=== PATIENT | female | born 2000 | race Caucasian/White ===

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

== ENCOUNTER → 2022-02-22 | Outpatient (CLI) | payer OTHER ==
[2022-02-24 02:09] LABS: CHLAMYDIA TRACHOMATIS, NAA Negative (Negative)
== END | disposition home or self-care (01) ==
LOC: LAB SHORT 15:14 → LAB 15:14
PROVIDERS: Advanced Practice Midwife
DX: Z11.3 Encounter for screening for infections with a predominantly sexual mode of transmission (principal)
CPT/HCPCS: 87491; 87591

== ENCOUNTER 2022-07-07 07:55 | Emergency (ER) | payer OTHER ==
[~2022-07-07] VITALS: Ht 152.4 cm; Wt 76.2 kg
[2022-07-07] MEDS ORDERED: CEFU250T47 PO (08:59)
[2022-07-07] MEDS ORDERED: ONDA4ODT MM (09:00)
== END 2022-07-07 09:01 | disposition home or self-care (01) ==
LOC: ER 07:55
DX: J02.0 Streptococcal pharyngitis (principal); Z88.0 Allergy status to penicillin
CPT/HCPCS: 99282

== ENCOUNTER → 2022-07-12 | Outpatient (CLI) | payer OTHER ==
[~2022-07-12] MED LIST changes: +CEFU250T47 PO
[2022-07-12 16:34] LABS: BASOPHILS ABSOLUTE AUTO 0.05 K/mm3 (0.00-0.23); BASOPHILS PERCENT AUTO 1 % (0-2); EOSINOPHILS ABSOLUTE AUTO 0.05 K/mm3 (0.00-0.68); EOSINOPHILS PERCENT AUTO 1 % (0-6); Hematocrit 44.8 % (33.0-51.0); Hemoglobin 15.4 g/dL (11.5-16.0); IMMATURE GRAN ABSOLUTE AUTO 0.04 K/mm3 (0.00-0.10); IMMATURE GRAN PERCENT AUTO 0 % (0-1); LYMPHOCYTES ABSOLUTE AUTO 2.69 K/mm3 (0.84-5.20); LYMPHOCYTES PERCENT AUTO 26 % (21-46); MONOCYTES ABSOLUTE AUTO 0.74 K/mm3 (0.16-1.47); MONOCYTES PERCENT AUTO 7 % (4-13); Mean Corpuscular HGB 31.2 pg (26.0-34.0); Mean Corpuscular HGB Conc 34.4 g/dL (31.5-36.5); Mean Corpuscular Volume 91 fL (80-100); NEUTROPHILS ABSOLUTE AUTO 6.79 K/mm3 (1.96-9.15); NEUTROPHILS PERCENT AUTO 66 % (41-73); Platelet Count 301 K/mm3 (150-400); RDW Coefficient Variation 11.6 % (11.7-14.2); RDW Standard Deviation 38.2 fL (35.1-46.3); Red Blood Cell Count 4.94 M/mm3 (3.80-5.20); White Blood Cell Count 10.36 K/mm3 (4.00-11.30)
[2022-07-12 17:25] LABS: Albumin, Blood 3.6 g/dL (3.4-5.0); Albumin/Globulin Ratio 0.7 (0.8-1.8); Bilirubin, Total 0.2 mg/dL (0.1-1.0); Bun/Creatinine Ratio 13.1 (12.0-20.0); Calcium, Blood 9.8 mg/dL (8.5-10.1); Creatinine, Blood 0.61 mg/dL (0.40-1.00); Globulin, Blood 5.1 g/dL (2.2-4.0); Potassium, Blood 3.7 mmol/L (3.5-5.5); Total Protein, Blood 8.7 g/dL (6.4-8.2)
== END | disposition home or self-care (01) ==
LOC: LAB 16:28 → LAB SHORT 16:28
PROVIDERS: Chiropractor
DX: R10.11 Right upper quadrant pain (principal)
CPT/HCPCS: 80053; 83690; 85025

== ENCOUNTER 2023-03-08 20:22 | Emergency (ER) | payer OTHER ==
[~2023-03-08] VITALS: Ht 152.4 cm; Wt 72.6 kg
[2023-03-08 20:47] VITALS: BP 117/62
== END 2023-03-08 21:37 | disposition home or self-care (01) ==
LOC: ER 20:22
DX: J02.9 Acute pharyngitis, unspecified (principal); Z88.0 Allergy status to penicillin; Z79.899 Other long term (current) drug therapy
CPT/HCPCS: 96372; 99283-25; J1100; J1885

== ENCOUNTER 2023-09-20 16:42 | Emergency (ER) | payer SELFPAY ==
[~2023-09-20] VITALS: Ht 152.4 cm; Wt 63.5 kg
[2023-09-20 16:51] VITALS: BP 130/74
[2023-09-20] MEDS ORDERED: Vistaril25 MG PO (17:40)
[2023-09-20] MEDS ORDERED: HyDROXyzine HCl 25 MG Tab PO ONE (17:40)
[2023-09-20] MEDS ORDERED: Ondansetron 4 MG SoluTab SL ONE (17:40)
== END 2023-09-20 17:55 | disposition home or self-care (01) ==
LOC: ER 16:42
DX: F41.9 Anxiety disorder, unspecified (principal); Z88.0 Allergy status to penicillin
CPT/HCPCS: 99282; A9270

== ENCOUNTER 2023-09-22 10:08 | Emergency (ER) | payer SELFPAY ==
[~2023-09-22] VITALS: Ht 152.4 cm; Wt 65.8 kg
[~2023-09-22 10:08] MED LIST changes: +Vistaril25 MG PO
[2023-09-22] MEDS ORDERED: Mag Hydrox/AL Hydrox/Simeth 30 ML UDC PO ONE (10:40)
[2023-09-22] MEDS ORDERED: Famotidine 20 MG Tab PO ONE (10:40)
[2023-09-22 12:15] VITALS: BP 132/74
== END 2023-09-22 12:15 | disposition home or self-care (01) ==
LOC: ER 10:08
DX: R07.89 Other chest pain (principal); Z88.0 Allergy status to penicillin
CPT/HCPCS: 71046; 93005; 93010; 99285-25; A9270

== ENCOUNTER → 2024-05-09 | Outpatient (CLI) | payer OTHER | LOC: LAB SHORT 10:08 → LAB 10:08 | DX: R82.81 Pyuria (principal) | CPT/HCPCS: 87086 ==

== ENCOUNTER → 2024-05-16 | Outpatient (CLI) | payer OTHER ==
[2024-05-16 12:49] LABS: Source, Urine Clean Catch
[2024-05-16 14:23] LABS: BASOPHILS ABSOLUTE AUTO 0.05 K/mm3 (0.00-0.23); BASOPHILS PERCENT AUTO 1 % (0-2); EOSINOPHILS ABSOLUTE AUTO 0.08 K/mm3 (0.00-0.68); EOSINOPHILS PERCENT AUTO 1 % (0-6); Hematocrit 36.9 % (33.0-51.0); Hemoglobin 12.9 g/dL (11.5-16.0); IMMATURE GRAN ABSOLUTE AUTO 0.01 K/mm3 (0.00-0.10); IMMATURE GRAN PERCENT AUTO 0 % (0-1); LYMPHOCYTES PERCENT AUTO 33 % (21-46); MONOCYTES ABSOLUTE AUTO 0.58 K/mm3 (0.16-1.47); MONOCYTES PERCENT AUTO 9 % (4-13); Mean Corpuscular HGB 31.7 pg (26.0-34.0); Mean Corpuscular Volume 91 fL (80-100); Mean Platelet Volume 10.3 fL (9.1-12.4); NEUTROPHILS ABSOLUTE AUTO 3.51 K/mm3 (1.96-9.15); NEUTROPHILS PERCENT AUTO 55 % (41-73); Platelet Count 288 K/mm3 (150-400); RDW Coefficient Variation 11.9 % (11.7-14.2); RDW Standard Deviation 39.4 fL (35.1-46.3); Red Blood Cell Count 4.07 M/mm3 (3.80-5.20); White Blood Cell Count 6.33 K/mm3 (4.00-11.30)
[2024-05-16 15:44] LABS: Appearance, Urine Hazy (Clear); Bilirubin, Urine Neg (Neg); Blood, Urine Neg (Neg); Color, Urine Yellow (P-Yellow); Glucose Qualitative, Urine Neg (Neg); Ketones, Urine Neg (Neg); Leukocyte Esterase, Urine 1+ (Neg); Nitrite, Urine Neg (Neg); Protein, Urine 1+ (Neg); Specific Gravity, Urine 1.025 (1.003-1.022); Urobilinogen, Urine NORM (Normal)
[2024-05-16 16:06] LABS: Bacteria Many /hpf; Mucus Light (0-Heavy); Red Blood Cells, Urine Not Seen /hpf (0-2); Squamous Epithelial Cells Few /hpf (Few)
[2024-05-18 07:40] LABS: HEPATITIS B SURFACE ANTIGEN Negative (Negative)
[2024-05-18 09:58] LABS: HEPATITIS C AB CIA INTERP Negative (Negative); HEPATITIS C ANTIBODY CIA INDEX 0.02 IV
[2024-05-18 10:27] LABS: HIV 1,2 COMBO ANTIGEN/ANTIBODY Negative (Negative)
== END ==
LOC: LAB 11:17 → LAB SHORT 11:17
PROVIDERS: Registered Nurse Community Health
DX: Z34.91 Encounter for supervision of normal pregnancy, unspecified, first trimester (principal)
CPT/HCPCS: 81001; 84443; 86803; 87086; 87340; 87389

== ENCOUNTER → 2024-06-19 | Outpatient (CLI) | payer OTHER ==
[2024-06-21 14:52] LABS: APTIMA MEDIA TYPE Urine; C. TRACHOMATIS BY TMA Negative (Negative); N. GONORRHOEAE BY TMA Negative (Negative); SPECIMEN SOURCE Urine
== END ==
LOC: LAB SHORT 13:50 → LAB 13:50
PROVIDERS: Registered Nurse Community Health
DX: Z34.92 Encounter for supervision of normal pregnancy, unspecified, second trimester (principal)
CPT/HCPCS: 87491; 87591

== ENCOUNTER 2025-01-07 06:07 | Inpatient (IN) | payer OTHER ==
[2025-01-07] VITALS (19 sets, daily range): BP systolic 115–184; BP diastolic 56–109
[~2025-01-07] VITALS: Ht 152.4 cm; Wt 98.4 kg
[2025-01-07] MEDS ORDERED: Methylergonovine Maleate 0.2MG / ML 1ML Amp IM PRN ×2 (06:25→08:40)
[2025-01-07] MEDS ORDERED: Ondansetron HCl 2 MG / ML 2ML Vial IV PRN (06:25)
[2025-01-07] MEDS ORDERED: Carboprost Tromethamine 250 MCG/ML 1ML Amp IM PRN (06:25)
[2025-01-07] MEDS ORDERED: OXYTOCIN/RINGER'S LACTATE 500 ML IV PRN (06:25)
[2025-01-07] MEDS ORDERED: Oxytocin 10 Unit / ML Vial IM PRN (06:25)
[2025-01-07] MEDS ORDERED: Tranexamic Acid 100 ML IV SCH (06:25)
[2025-01-07] MEDS ORDERED: ePHEDrine Sulfate 50 MG/ML 1ML Injection XX PRN (06:35)
[2025-01-07] MEDS ORDERED: FentaNYL 2mcg/ml-Bup 0.1% Epd 250 ML EPI PRN (06:35)
[2025-01-07] MEDS ORDERED: CeFAZolin Sodium 2,000 MG in NS 100 ML IV ONE (06:40)
[2025-01-07] MEDS ORDERED: FentaNYL Citrate 50 MCG/ML 2 ML Injection IV PRN (06:40)
[2025-01-07 07:00] LABS: BASOPHILS ABSOLUTE AUTO 0.04 K/mm3 (0.00-0.23); BASOPHILS PERCENT AUTO 0 % (0-2); EOSINOPHILS ABSOLUTE AUTO 0.03 K/mm3 (0.00-0.68); EOSINOPHILS PERCENT AUTO 0 % (0-6); Hematocrit 38.0 % (33.0-51.0); Hemoglobin 12.7 g/dL (11.5-16.0); IMMATURE GRAN ABSOLUTE AUTO 0.14 K/mm3 (0.00-0.10); IMMATURE GRAN PERCENT AUTO 1 % (0-1); LYMPHOCYTES ABSOLUTE AUTO 1.55 K/mm3 (0.84-5.20); LYMPHOCYTES PERCENT AUTO 8 % (21-46); MONOCYTES ABSOLUTE AUTO 0.81 K/mm3 (0.16-1.47); MONOCYTES PERCENT AUTO 4 % (4-13); Mean Corpuscular HGB Conc 33.4 g/dL (31.5-36.5); Mean Corpuscular Volume 88 fL (80-100); NEUTROPHILS ABSOLUTE AUTO 15.90 K/mm3 (1.96-9.15); NEUTROPHILS PERCENT AUTO 86 % (41-73); NRBC ABSOLUTE 0.00 K/mm3 (0.00-0.02); NRBC Auto 0.0 /100 WBC (0.0-0.2); Platelet Count 190 K/mm3 (150-400); RDW Coefficient Variation 14.2 % (11.7-14.2); RDW Standard Deviation 44.9 fL (35.1-46.3)
[2025-01-07] MEDS ORDERED: HydrALAZINE HCl 20 MG / ML 1ML Vial ONE (07:26)
[2025-01-07] MEDS ORDERED: CeFAZolin 1000MG in D5W 50 ML IV SCH (08:00)
[2025-01-07] MEDS ORDERED: OXYTOCIN/RINGER'S LACTATE 500 ML IV SCH (08:40)
[2025-01-07] MEDS ORDERED: Oxytocin 10 Unit / ML Vial IM ONE (08:40)
[2025-01-07] MEDS ORDERED: Ketorolac Tromethamine 30mg Vial IV PRN (08:45)
[2025-01-07] MEDS ORDERED: Witch Hazel/Glycerin PADS TOP PRN (08:45)
[2025-01-07] MEDS ORDERED: Benzocaine Topical Anesthetic Spray 60GM TOP PRN (08:45)
[2025-01-07] MEDS ORDERED: HydrALAZINE HCl 20 MG / ML 1ML Vial IV ONE (08:50)
[2025-01-07] MEDS ORDERED: Acetaminophen/Codeine 300-30 mg PO PRN (08:50)
[2025-01-07] MEDS ORDERED: Tranexamic Acid 100 ML IV PRN (09:00)
[2025-01-07] MEDS ORDERED: Prenatal Vit/FE Fumarate/FA 1 Tab PO SCH (09:00)
[2025-01-07] MEDS ORDERED: Methylergonovine Maleate 0.2MG / ML 1ML Amp IV ONE (13:45)
[2025-01-07] MEDS ORDERED: CeFAZolin Sodium 1,000 MG in NS 50 ML IV SCH (15:00)
[2025-01-08 00:49] VITALS: BP 119/58
[2025-01-08 05:00] VITALS: BP 120/58
[2025-01-08 05:53] LABS: BASOPHILS ABSOLUTE AUTO 0.04 K/mm3 (0.00-0.23); BASOPHILS PERCENT AUTO 0 % (0-2); EOSINOPHILS ABSOLUTE AUTO 0.07 K/mm3 (0.00-0.68); EOSINOPHILS PERCENT AUTO 1 % (0-6); Hematocrit 26.1 % (33.0-51.0); Hemoglobin 8.5 g/dL (11.5-16.0); IMMATURE GRAN ABSOLUTE AUTO 0.10 K/mm3 (0.00-0.10); IMMATURE GRAN PERCENT AUTO 1 % (0-1); LYMPHOCYTES ABSOLUTE AUTO 2.49 K/mm3 (0.84-5.20); LYMPHOCYTES PERCENT AUTO 19 % (21-46); MONOCYTES ABSOLUTE AUTO 1.09 K/mm3 (0.16-1.47); MONOCYTES PERCENT AUTO 8 % (4-13); Mean Corpuscular HGB Conc 32.6 g/dL (31.5-36.5); Mean Corpuscular Volume 89 fL (80-100); NEUTROPHILS ABSOLUTE AUTO 9.51 K/mm3 (1.96-9.15); NEUTROPHILS PERCENT AUTO 72 % (41-73); NRBC ABSOLUTE 0.00 K/mm3 (0.00-0.02); NRBC Auto 0.0 /100 WBC (0.0-0.2); Platelet Count 155 K/mm3 (150-400); RDW Coefficient Variation 14.7 % (11.7-14.2); RDW Standard Deviation 46.9 fL (35.1-46.3)
[2025-01-08 07:20] VITALS: BP 139/75
[2025-01-08 11:06] VITALS: BP 125/58
[2025-01-08 14:59] VITALS: BP 135/64
[2025-01-08 19:49] VITALS: BP 136/78
[2025-01-09 03:07] VITALS: BP 141/79
[2025-01-09 08:20] VITALS: BP 135/68
[2025-01-09 11:30] VITALS: BP 136/73
[2025-01-09 14:12] VITALS: BP 132/79
== END 2025-01-09 14:34 | disposition home or self-care (01) | DRG 806 ==
LOC: OBS 06:07 → BC 06:13 → OBS 06:27 → BC 06:35
PROVIDERS: ADMIT Registered Nurse Community Health
PROC: 10E0XZZ Delivery of Products of Conception, External Approach (ICD-10-PCS; principal; 2025-01-07)
PROC: 0HQ9XZZ Repair Perineum Skin, External Approach (ICD-10-PCS; 2025-01-07)
PROC: 4A1HXCZ Monitoring of Products of Conception, Cardiac Rate, External Approach (ICD-10-PCS; 2025-01-07)
DX: O48.0 Post-term pregnancy (principal); O72.1 Other immediate postpartum hemorrhage; Z37.0 Single live birth; O99.324 Drug use complicating childbirth; Z3A.40 40 weeks gestation of pregnancy; O76 Abnormality in fetal heart rate and rhythm complicating labor and delivery; Z88.0 Allergy status to penicillin; O99.214 Obesity complicating childbirth; F12.90 Cannabis use, unspecified, uncomplicated; O99.824 Streptococcus B carrier state complicating childbirth; O70.0 First degree perineal laceration during delivery
CPT/HCPCS: 36415; 59025; 85025; 86850; 86900; 86901; 99214; A9270; J0360; J0690; J1885; J2210; J2590; J7120